=== PATIENT | male | born 1990 | race Caucasian/White ===

== ENCOUNTER 2016-10-04 11:52 | Emergency (ER) | payer SELFPAY ==
[~2016-10-04] VITALS: Ht 185.4 cm; Wt 68.0 kg
[~2016-10-04 11:52] MED LIST: AMOX875T PO; AZIT250T PO; CLIN300C8 PO; DOXY100C2 PO; HYDR-971 PO; INSU100I17 SQ; INSU100I27 SQ; LIDO20SO PO; MUPI22OI2 TP; NYST100054 PO; OMEP40CA5 PO; ONDA4TAB10 SL; PRED50TA PO; VENTOLIN HFA18 GM INH
[2016-10-04 12:03] VITALS: BP 116/78
[2016-10-04] MEDS ORDERED: MUPI22OI2 TP (12:24)
--- NOTE | 2016-10-04 12:24 | PHYS DOC ---
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 They come and go and are associated with redness. Onset weeks. Location skin. Duration constant. The wounds are alleviated by topical ointment that was given to him last time in the emergency room. Review of systems is negative for chest pain shortness of breath nausea vomiting fevers chills. He denies any other complaints. All other review of systems is negative unless otherwise noted in history of present illness. ED course: 18-year-old gentleman wanting a prescription for his wounds from methamphetamine use. He was given topical mupirocin cream to follow-up with his primary care physician for further evaluation workup and care in 4-5 days. Review of Systems Review of Systems SEE ABOVE. Allergies Allergies Allergies Coded Allergies Type Severity Reaction Last Updated Verified haloperidol Allergy Intermediate "I felt like I was blowing up on the inside" 01/23/16 Yes I S O L A T I O N *CONTACT* Allergy Unknown 01/23/16 Yes No Known Medication Allergies Allergy Unknown 06/08/14 Yes Physical Exam Physical Exam Constitutional: Well developed, well nourished, no acute distress, non-toxic appearance. [] HENT: Normocephalic, atraumatic, bilateral external ears normal, oropharynx moist, no oral exudates, nose normal. [] Eyes: PERRLA, EOMI, conjunctiva normal, no discharge. Neck: Normal range of motion, no tenderness, supple, no stridor. [] Cardiovascular:Heart rate regular rhythm, no murmur Lungs & Thorax: Bilateral breath sounds clear to auscultation [] Abdomen: Bowel sounds normal, soft, no tenderness, no masses, no pulsatile masses. [] Skin: Warm, dry, no erythema. small healing wounds over body from meth use. Back: No tenderness, no CVA tenderness. [] Extremities: No tenderness, no cyanosis, no clubbing, ROM intact, no edema. [] Neurologic: Alert and oriented X 3, normal motor function, normal sensory function, no focal deficits noted. [] Psychologic: Affect normal, judgement normal, mood normal. [] Current Patient Data Vital Signs Vital Signs Date Time Temp Pulse Resp B/P (MAP) Pulse Ox O2 Delivery O2 Flow Rate FiO2 10/04/16 12:03 97.9 88 18 100 Room Air 97.9 EKG EKG [] Radiology/Procedures Radiology/Procedures [] Course & Med Decision Making Course & Med Decision Making Pertinent Labs and Imaging studies reviewed. (See chart for details) [] Dragon Disclaimer Dragon Disclaimer This electronic medical record was generated, in whole or in part, using a voice recognition dictation system. Departure Departure Impression: Primary Impression: Staph skin infection Disposition: HOME, SELF-CARE Condition: STABLE Referrals: NO PCP (PCP) ELLE MI MD Patient Instructions: Mupirocin skin cream or ointment Scripts Mupirocin (MUPIROCIN OINTMENT) 22 Gm Oint...g. 1 DAVID TP TID for WOUND CARE, #1 TUBE Prov: ANDREA SANCHEZ MD 10/04/16 ANDREA SANCHEZ MD Oct 04, 2016 12:24
== END 2016-10-04 12:30 | disposition home or self-care (01) ==
LOC: ER 11:52
DX: L08.89 Other specified local infections of the skin and subcutaneous tissue (principal); F15.10 Other stimulant abuse, uncomplicated; B95.8 Unspecified staphylococcus as the cause of diseases classified elsewhere; K21.9 Gastro-esophageal reflux disease without esophagitis; E11.9 Type 2 diabetes mellitus without complications; F12.10 Cannabis abuse, uncomplicated; Z88.8 Allergy status to other drugs, medicaments and biological substances; Z91.041 Radiographic dye allergy status
CPT/HCPCS: 99283

== ENCOUNTER 2016-10-14 13:50 | Emergency (ER) | payer SELFPAY ==
[~2016-10-14] VITALS: Ht 185.4 cm; Wt 68.0 kg
[2016-10-14 14:08] VITALS: BP 128/99
--- NOTE | 2016-10-14 14:52 | PHYS DOC ---
Past Medical History Past Medical History: Diabetes-Type II, GERD Additional Past Medical Histor: stap Past Surgical History: No Surgical History Alcohol Use: Occasionally Drug Use: Marijuana, Methamphetamine Adult General Chief Complaint Chief Complaint: TOOTH ACHE OR PAIN [facility] Patient is a 26 year old male presents to the emergency department stating he is having left molar upper dental pain that started at 12:00 this afternoon. He states that he had taken some ibuprofen for the pain and discomfort which hasn' t helped yet he is also stated that he has rinsed his mouth out with hydrogen peroxide multiple times as well. He denies any fever, chills or any nausea vomiting. He denies any foul taste in his mouth. Review of Systems Review of Systems Constitutional: Denies fever or chills [] Eyes: Denies change in visual acuity, redness, or eye pain [] HENT: Denies nasal congestion or sore throat. Complaint of left upper back molar pain and discomfort Respiratory: Denies cough or shortness of breath [] Cardiovascular: No additional information not addressed in HPI [] GI: Denies abdominal pain, nausea, vomiting, bloody stools or diarrhea [] : Denies dysuria or hematuria [] Musculoskeletal: Denies back pain or joint pain [] Integument: Denies rash or skin lesions [] Neurologic: Denies headache, focal weakness or sensory changes [] Endocrine: Denies polyuria or polydipsia [] Allergies Allergies Allergies Coded Allergies Type Severity Reaction Last Updated Verified haloperidol Allergy Intermediate "I felt like I was blowing up on the inside" 01/23/16 Yes I S O L A T I O N *CONTACT* Allergy Unknown 01/23/16 Yes No Known Medication Allergies Allergy Unknown 06/08/14 Yes Physical Exam Physical Exam Constitutional: Well developed, well nourished, no acute distress, non-toxic appearance. [] HENT: Normocephalic, atraumatic, bilateral external ears normal, oropharynx moist, no oral exudates, nose normal. Bilateral tympanic membranes appear to be normal. Throat with no erythematous. Patient appears to have a cavity has slightly dislodged. Patient also appears to have some dislodgment of teeth along the left upper molar. No abscess noted. Eyes: PERRLA, EOMI, conjunctiva normal, no discharge. [] Neck: Normal range of motion, no tenderness, supple, no stridor. [] Cardiovascular:Heart rate regular rhythm, no murmur [] Lungs & Thorax: Bilateral breath sounds clear to auscultation [] Skin: Warm, dry, no erythema, no rash. [] Back: No tenderness Extremities: No tenderness, no cyanosis, no clubbing, ROM intact, no edema. [] Neurologic: Alert and oriented X 3, normal motor function, normal sensory function, no focal deficits noted. [] Psychologic: Affect normal, judgement normal, mood normal. [] Current Patient Data Vital Signs Vital Signs Date Time Temp Pulse Resp B/P (MAP) Pulse Ox O2 Delivery O2 Flow Rate FiO2 10/14/16 14:08 98.1 58 20 98 Room Air 98.1 EKG EKG [] Radiology/Procedures Radiology/Procedures [] Course & Med Decision Making Course & Med Decision Making Pertinent Labs and Imaging studies reviewed. (See chart for details) Instructed patient to use dental wax [id number] to help cover the area until he can get into the dentist. Recommended ibuprofen for pain and discomfort. Warm salt water mouth rinses 4-5 times a day. Patient agreed with discharge instructions upon providing him the continuation of instructions to follow up with a dentist patient's asked if he was going to get a prescription for pain medication. Explained to patient that once the areas covered with the dental wax but this should help with the pain and discomfort. Patient will be discharged home in stable condition signs and symptoms to return back to emergency department has been provided. [] Dragon Disclaimer Dragon Disclaimer This electronic medical record was generated, in whole or in part, using a voice recognition dictation system. Departure Departure Impression: Primary Impression: Pain, dental Disposition: 01 HOME, SELF-CARE Condition: STABLE Referrals: NO PCP (PCP) Patient Instructions: Dental Pain, [id number] Additional Instructions: Activity as tolerated. Follow-up with the dentist within the next week. You may obtain dental wax [id number] to place over the area of the tooth that is having pain. Ibuprofen 800 mg every 8 hours this medication may cause upset stomachs make sure you eat when taking it. Return back to emergency prior signs and symptoms of become worse. ZUHAIR [employer]ES [employer] TENDER Oct 14, 2016 14:52
== END 2016-10-14 14:52 | disposition home or self-care (01) ==
LOC: ER 13:50
DX: K08.89 Other specified disorders of teeth and supporting structures (principal); E11.9 Type 2 diabetes mellitus without complications; K21.9 Gastro-esophageal reflux disease without esophagitis; F12.10 Cannabis abuse, uncomplicated; F15.10 Other stimulant abuse, uncomplicated; Z91.041 Radiographic dye allergy status; Z88.8 Allergy status to other drugs, medicaments and biological substances
CPT/HCPCS: 99281

== ENCOUNTER 2017-05-16 05:37 | Emergency (ER) | payer SELFPAY ==
[2017-05-16 06:36] LABS: POC GLUCOSE 165 mg/dL (70-99)
[2017-05-16] MEDS: MULTIVIT INFUSN,ADULT 4,VIT K 10 ML, THIAMINE 100 MG, FOLIC ACID 1 MG in IV NORMAL SALI... IV ×2 (06:44)
[2017-05-16 06:49] LABS: ADD MAN DIFF? NO
[2017-05-16 07:05] LABS: ANION GAP 7 (6-14); BLOOD UREA NITROGEN 18 mg/dL (8-26); CALCIUM 8.7 mg/dL (8.5-10.1); CARBON DIOXIDE 30 mmol/L (21-32); CHLORIDE 100 mmol/L (98-107); CREATININE 0.7 mg/dL (0.7-1.3); GFR 133.3; GLUCOSE 173 mg/dL (70-99); POTASSIUM 3.9 mmol/L (3.5-5.1); SODIUM 137 mmol/L (136-145)
[2017-05-16 07:06] LABS: BASO # 0.1 x10^3/uL (0.0-0.2); BASO % 1 % (0-3); EOS % 1 % (0-3); HEMATOCRIT 42.9 % (39.0-53.0); HEMOGLOBIN 14.4 g/dL (13.0-17.5); LYMPH # 1.4 x10^3/uL (1.0-4.8); LYMPH % 24 % (24-48); MEAN CORPUSCULAR HEMOGLOBIN 29 pg (25-35); MEAN CORPUSCULAR HGB CONC 34 g/dL (31-37); MEAN CORPUSCULAR VOLUME 87 fL (79-100); MONO # 0.4 x10^3/uL (0.0-1.1); MONO % 7 % (0-9); NEUT % 67 % (31-73); PLATELET COUNT 217 x10^3/uL (140-400); RED BLOOD COUNT 4.91 x10^6/uL (4.30-5.70); RED CELL DISTRIBUTION WIDTH 12.9 % (11.5-14.5)
[2017-05-16 07:13] LABS: ALBUMIN 3.6 g/dL (3.4-5.0); ALK PHOS 81 U/L (46-116); ALT (SGPT) 24 U/L (16-63); AST (SGOT) 10 U/L (15-37); DIRECT BILIRUBIN 0.1 mg/dL (0.0-0.2); MAGNESIUM 1.7 mg/dL (1.8-2.4); TOTAL BILIRUBIN 0.2 mg/dL (0.2-1.0); TOTAL PROTEIN 6.8 g/dL (6.4-8.2)
[2017-05-16 07:15] LABS: INR 1.2 (0.8-1.1); PARTIAL THROMBOPLASTIN TIME 28 SEC (24-38); PROTHROMBIN TIME PATIENT 14.1 SEC (11.7-14.0)
[2017-05-16 08:17] LABS: AMPHETAMINE/METHAMPHETAMINE POS (NEG); BARBITURATES NEG (NEG); BENZODIAZEPINES NEG (NEG); CANNABINOIDS POS (NEG); COCAINE NEG (NEG); ETHANOL, URINE NEG (NEG); METHADONE NEG (NEG); OPIATES NEG (NEG); PHENCYCLIDINE NEG (NEG)
[2017-05-16 08:39] LABS: POC GLUCOSE 194 mg/dL (70-99)
[2017-05-16] MEDS: INSULIN DETEMIR 300 UNITS/3 ML INSULN.PEN. SQ ×2 (09:11)
[2017-05-16] MEDS: INSULIN ASPART 300 UNITS/3 ML INSULN.PEN SQ ×2 (09:12)
== END 2017-05-16 09:54 | disposition home or self-care (01) ==
LOC: ER 05:37
DX: F11.23 Opioid dependence with withdrawal (principal); F41.9 Anxiety disorder, unspecified; F15.10 Other stimulant abuse, uncomplicated; K21.9 Gastro-esophageal reflux disease without esophagitis; E10.9 Type 1 diabetes mellitus without complications; F12.10 Cannabis abuse, uncomplicated; Z88.8 Allergy status to other drugs, medicaments and biological substances; Z79.4 Long term (current) use of insulin; Z91.041 Radiographic dye allergy status
CPT/HCPCS: 36415; 80048; 80076; 80307; 82962; 83735; 85025; 85610; 85730; 96365; 96372; 96375; 99284-25; J1815; J2060; J7030

== ENCOUNTER 2017-12-06 05:47 | Emergency (ER) | payer SELFPAY ==
[~2017-12-06] VITALS: Ht 185.4 cm; Wt 68.0 kg
[~2017-12-06 05:47] MED LIST changes: +TRAZ-86 PO
--- NOTE | 2017-12-06 06:13 | PHYS DOC ---
Past Medical History Past Medical History: Anxiety, Diabetes-Type I, GERD Additional Past Medical Histor: staph Past Surgical History: No Surgical History Smoking: Cigarettes Alcohol Use: Occasionally Drug Use: Marijuana, Methamphetamine Adult General Chief Complaint Chief Complaint: SUICDAL IDEATION HPI HPI Patient presents to the emergency department for evaluation. He states he has not slept for 4 days. He states every time he tries to lay down his mind begins racing. He states he has also been having some suicidal thoughts but is uncertain why he is feeling suicidal. He states he gets stressed and the thoughts of suicide come to his head but he does not have any active suicidal desire at this time and does not have a plan. The patient is very emotional and tearful. He states his father about 2 weeks ago but does not think that this is what is keeping him awake. He does admit to using amphetamines, but states he has not used in a week, and he did sleep after he last used. He states he has never had suicidal thoughts before or been hospitalized for mental health reasons, although he has had outpatient counseling for substance abuse. He is an insulin-dependent diabetic but denies any other medical problems and reports compliance with his medications. He denies any physical pain, although he states he has some discomfort in his chest when he lays down to go to sleep, relating to his anxiety. There are no alleviating, or exacerbating factors to his symptoms. Patient did have somewhat of a similar presentation to this emergency department in May of this past year. Notes from that ER visit have been reviewed. Review of Systems Review of Systems Constitutional: Denies fever or chills [] Eyes: Denies change in visual acuity, redness, or eye pain [] HENT: Denies nasal congestion or sore throat [] Respiratory: Denies cough or shortness of breath [] Cardiovascular: The patient denies any shortness of breath, current chest pain, palpitations, or orthopnea [] GI: Denies abdominal pain, nausea, vomiting, bloody stools or diarrhea [] : Denies dysuria or hematuria [] Musculoskeletal: Denies back pain or joint pain [] Integument: Denies rash or skin lesions [] Neurologic: Denies headache, focal weakness or sensory changes [] Endocrine: Denies polyuria or polydipsia [] Psychiatric: Patient reports anxiety, and insomnia. Denies any visual hallucinations, or command/auditory hallucinations. All other systems were reviewed and found to be within normal limits, except as documented in this note. Current Medications Current Medications Current Medications Medications (Trade) Dose Ordered Sig/Bryce Start Time Stop Time Status Last Admin Dose Admin Lorazepam (Ativan) 1 mg 1X ONCE 12/06/17 06:15 12/06/17 06:16 DC 12/06/17 06:19 1 MG Allergies Allergies Allergies Coded Allergies Type Severity Reaction Last Updated Verified I S O L A T I O N *CONTACT* Allergy Unknown 01/23/16 Yes haloperidol Adverse Reaction Intermediate "I felt like I was blowing up on the inside" 05/16/17 Yes Physical Exam Physical Exam PHYSICAL EXAM: CONSTITUTIONAL: Well developed, well nourished HEAD: normocephalic, atraumatic EENT: PERRL, EOMI. Conjunctivae normal color, sclerae non-icteric; moist mucous membranes. NECK: Supple, non-tender; no meningismus. LUNGS: Lungs CTA, breathing even and unlabored. Normal air movement. HEART: Regular rate and rhythm, no murmur CHEST: No deformity; non-tender ABDOMEN: The abdomen is soft, and non-tender, no masses or bruits. EXTREM: Normal ROM; no deformity, no calf tenderness. Normal pulses palpable in all extremities. There is no pedal edema. SKIN: No rash; no diaphoresis. There are numerous small, scabbed lesions on the extremities. NEURO: Alert; normal speech and cognition; CN's grossly intact; strength grossly intact without focal deficit. BACK: No CVA TTP. PSYCHIATRIC: The patient appears extremely anxious, with a labile affect, cries very easily. Current Patient Data Vital Signs Vital Signs Date Time Temp Pulse Resp B/P (MAP) Pulse Ox O2 Delivery O2 Flow Rate FiO2 12/06/17 06:53 90 16 109/71 (84) 98 Room Air 12/06/17 05:50 97.9 97.9 Lab Values Laboratory Tests Test 12/06/17 05:55 12/06/17 06:04 Urine Collection Type Unknown Urine Color Yellow Urine Clarity Clear Urine pH 6.0 Urine Specific [place] 1.015 Urine Protein Negative mg/dL (NEG-TRACE) Urine Glucose (UA) Negative mg/dL (NEG) Urine Ketones (Stick) Negative mg/dL (NEG) Urine Blood Negative (NEG) Urine Nitrite Negative (NEG) Urine Bilirubin Negative (NEG) Urine Urobilinogen Dipstick 1.0 mg/dL (0.2 mg/dL) Urine Leukocyte Esterase Negative (NEG) Urine RBC 6-10 /HPF (0-2) Urine WBC 1-4 /HPF (0-4) Urine Squamous Epithelial Cells Few /LPF Urine Bacteria 0 /HPF (0-FEW) Urine Opiates Screen Neg (NEG) Urine Methadone Screen Neg (NEG) Urine Barbiturates Neg (NEG) Urine Phencyclidine Screen Neg (NEG) Urine Amphetamine/Methamphetamine Neg (NEG) Urine Benzodiazepines Screen Neg (NEG) Urine Cocaine Screen Neg (NEG) Urine Cannabinoids Screen Pos (NEG) Urine Ethyl Alcohol Neg (NEG) White Blood Count 6.6 x10^3/uL (4.0-11.0) Red Blood Count 5.17 x10^6/uL (4.30-5.70) Hemoglobin 15.4 g/dL (13.0-17.5) Hematocrit 45.2 % (39.0-53.0) Mean Corpuscular Volume 87 fL (79-100) Mean Corpuscular Hemoglobin 30 pg (25-35) Mean Corpuscular Hemoglobin Concent 34 g/dL (31-37) Red Cell Distribution Width 12.7 % (11.5-14.5) Platelet Count 186 x10^3/uL (140-400) Neutrophils (%) (Auto) 58 % (31-73) Lymphocytes (%) (Auto) 30 % (24-48) Monocytes (%) (Auto) 8 % (0-9) Eosinophils (%) (Auto) 3 % (0-3) Basophils (%) (Auto) 1 % (0-3) Neutrophils # (Auto) 3.8 x10^3uL (1.8-7.7) Lymphocytes # (Auto) 2.0 x10^3/uL (1.0-4.8) Monocytes # (Auto) 0.5 x10^3/uL (0.0-1.1) Eosinophils # (Auto) 0.2 x10^3/uL (0.0-0.7) Basophils # (Auto) 0.1 x10^3/uL (0.0-0.2) Sodium Level 133 mmol/L (136-145) L Potassium Level 3.7 mmol/L (3.5-5.1) Chloride Level 102 mmol/L (98-107) Carbon Dioxide Level 30 mmol/L (21-32) Anion Gap 1 (6-14) L Blood Urea Nitrogen 18 mg/dL (8-26) Creatinine 0.8 mg/dL (0.7-1.3) Estimated GFR (Cockcroft-Gault) 114.3 Glucose Level 85 mg/dL (70-99) Calcium Level 9.2 mg/dL (8.5-10.1) Magnesium Level 1.8 mg/dL (1.8-2.4) Total Bilirubin 0.3 mg/dL (0.2-1.0) Direct Bilirubin 0.1 mg/dL (0.0-0.2) Aspartate Amino Transferase (AST) 10 U/L (15-37) L Alanine Aminotransferase (ALT) 22 U/L (16-63) Alkaline Phosphatase 85 U/L (46-116) Total Protein 6.8 g/dL (6.4-8.2) Albumin 3.6 g/dL (3.4-5.0) Thyroid Stimulating Hormone (TSH) 1.051 uIU/mL (0.358-3.74) Free Thyroxine 0.94 ng/dL (0.76-1.46) Salicylates Level 4.1 mg/dL (2.8-20.0) Salicylate Last Dose Date Unknown Salicylate Last Dose Time Unknown Acetaminophen Level < 2.0 mcg/ml (10-30) L Acetaminophen Last Dose Date Unknown Acetaminophen Last Dose Time Unknown Ethyl Alcohol Level < 10 mg/dL (0-10) Laboratory Tests 12/06/17 06:04 Laboratory Tests 12/06/17 06:04 EKG EKG [Normal sinus rhythm a rate of 81 bpm, normal axis, normal intervals, early repolarization pattern without acute ischemic ST/T changes.] Radiology/Procedures Radiology/Procedures [] Course & Med Decision Making Course & Med Decision Making Pertinent Labs and Imaging studies reviewed. (See chart for details) [8:00 AM: The patient has been seen and evaluated by PAT team. He is feeling significantly better after administration of Ativan. His anxiety is controlled, his affect is normal at this time. He denies active suicidal ideation at this time. He states that when he gets stressed the thought of suicide comes into his head at times that he would never actually kill himself. Both myself and PAT director data management do not believe that the patient warrants hospitalization at this time. The patient has been given outpatient resources by PAT counselor, and expresses his desire to follow up today for outpatient treatment. Return precautions were discussed in detail.] Dragon Disclaimer Dragon Disclaimer This electronic medical record was generated, in whole or in part, using a voice recognition dictation system. Departure Departure Impression: Primary Impression: Anxiety Additional Impression: Depression Disposition: 01 HOME, SELF-CARE Condition: IMPROVED Patient Instructions: Anxiety and Panic Attacks, Depression, Adult, Hematuria, Adult, Substance Abuse-Brief Additional Instructions: Use the provided resources to establish care with a primary care provider for further evaluation. Testing today did demonstrate a small amount of blood in your urine. The significance of this is unknown but further outpatient evaluation, initially with a recheck of your urine specimen, is warranted. Please contact her primary care provider for further outpatient evaluation. Problem Qualifiers YOKASTA BRAY MD Dec 06, 2017 06:12
--- NOTE | 2017-12-06 06:30 | EKG ---
[facility] [address] [place] [address] Test Date: 2017-12-06 Test Time: 06:15:52 Pat Name: JASON CORTÉS Department: Room: Gender: M Pensionholder Information Clerk: [id number] : 1990 Requested By: YOKASTA BRAY Order Number: [id number] Reading MD: Sean Nathan MD Measurements Intervals [place] Rate: 81 P: 59 WI: 132 QRS: 86 QRSD: 90 T: 57 QT: 342 QTc: 402 Interpretive Statements SINUS RHYTHM Electronically Signed On 12-06-2017 11:00:13 CDT by Sean Nathan MD
[2017-12-06 06:31] LABS: CALCIUM 9.2 mg/dL (8.5-10.1); CREATININE 0.8 mg/dL (0.7-1.3); GFR 114.3; POTASSIUM 3.7 mmol/L (3.5-5.1)
[2017-12-06 06:32] LABS: BASO # 0.1 x10^3/uL (0.0-0.2); BASO % 1 % (0-3); EOS # 0.2 x10^3/uL (0.0-0.7); EOS % 3 % (0-3); HEMATOCRIT 45.2 % (39.0-53.0); HEMOGLOBIN 15.4 g/dL (13.0-17.5); LYMPH % 30 % (24-48); MEAN CORPUSCULAR HEMOGLOBIN 30 pg (25-35); MEAN CORPUSCULAR HGB CONC 34 g/dL (31-37); MEAN CORPUSCULAR VOLUME 87 fL (79-100); MONO # 0.5 x10^3/uL (0.0-1.1); MONO % 8 % (0-9); NEUT # 3.8 x10^3uL (1.8-7.7); NEUT % 58 % (31-73); PLATELET COUNT 186 x10^3/uL (140-400); RED BLOOD COUNT 5.17 x10^6/uL (4.30-5.70); RED CELL DISTRIBUTION WIDTH 12.7 % (11.5-14.5); WHITE BLOOD COUNT 6.6 x10^3/uL (4.0-11.0)
[2017-12-06 06:33] LABS: BARBITURATES NEG (NEG); BENZODIAZEPINES NEG (NEG); CANNABINOIDS POS (NEG); COCAINE NEG (NEG); METHADONE NEG (NEG); OPIATES NEG (NEG); PHENCYCLIDINE NEG (NEG)
[2017-12-06 06:34] LABS: ACETAMIN < 2.0 mcg/ml (10-30); SALIC 4.1 mg/dL (2.8-20.0)
[2017-12-06 06:35] LABS: ETHANOL < 10 mg/dL (0-10)
[2017-12-06 06:35] LABS: AMPHETAMINE/METHAMPHETAMINE NEG (NEG)
[2017-12-06 06:37] LABS: ALBUMIN 3.6 g/dL (3.4-5.0); DIRECT BILIRUBIN 0.1 mg/dL (0.0-0.2); MAGNESIUM 1.8 mg/dL (1.8-2.4); TOTAL BILIRUBIN 0.3 mg/dL (0.2-1.0); TOTAL PROTEIN 6.8 g/dL (6.4-8.2)
[2017-12-06 06:42] LABS: BILIRUBIN,URINE NEGATIVE (NEG); CLARITY,URINE CLEAR; COLOR,URINE YELLOW; NITRITE,URINE NEGATIVE (NEG); PROTEIN,URINE NEGATIVE (NEG-TRACE)
[2017-12-06 06:42] LABS: FREE T4 0.94 ng/dL (0.76-1.46); THYROID STIM HORMONE (TSH) 1.051 uIU/mL (0.358-3.74)
[2017-12-06 06:49] LABS: BACTERIA,URINE 0 /HPF (0-FEW); SQUAMOUS EPITHELIAL CELL,UR FEW /LPF
[2017-12-06 07:53] VITALS: BP 112/76
== END 2017-12-06 08:18 | disposition home or self-care (01) ==
LOC: ER 05:47
DX: F41.9 Anxiety disorder, unspecified (principal); F32.9 Major depressive disorder, single episode, unspecified; R45.851 Suicidal ideations; K21.9 Gastro-esophageal reflux disease without esophagitis; F17.210 Nicotine dependence, cigarettes, uncomplicated; E10.9 Type 1 diabetes mellitus without complications; Z91.041 Radiographic dye allergy status; Z88.8 Allergy status to other drugs, medicaments and biological substances
CPT/HCPCS: 36415; 80048; 80076; 80307; 80329; 81001; 83735; 84439; 84443; 85025; 93005; 96374; 99285; G0480; G6039; J2060; G0479

== ENCOUNTER 2017-12-22 10:21 | Emergency (ER) | payer SELFPAY ==
[~2017-12-22] VITALS: Ht 185.4 cm; Wt 68.0 kg
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
[2017-12-22] MEDS: NAPROXEN 500 MG TABLET PO STA (12:36)
[2017-12-22] MEDS: LIDOCAINE 1% PF 2 ML VIAL. INJ ONE (12:45)
[2017-12-22 13:30] VITALS: BP 126/85
[2017-12-22] MEDS ORDERED: CEPH500C PO (13:47)
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
[2017-12-22] MEDS: NEOMY/BACITR/POLYMYXIN OINT PACKET. TP ONE (13:52)
== END 2017-12-22 13:55 | disposition home or self-care (01) ==
LOC: ER 10:21
DX: S06.9X9A Unspecified intracranial injury with loss of consciousness of unspecified duration, initial encounter (principal); S71.111A Laceration without foreign body, right thigh, initial encounter; E10.9 Type 1 diabetes mellitus without complications; F15.10 Other stimulant abuse, uncomplicated; F17.200 Nicotine dependence, unspecified, uncomplicated; Z88.8 Allergy status to other drugs, medicaments and biological substances; Z91.041 Radiographic dye allergy status; X99.1XXA Assault by knife, initial encounter; Y93.89 Activity, other specified; Y92.009 Unspecified place in unspecified non-institutional (private) residence as the place of occurrence of the external cause; Y99.8 Other external cause status
CPT/HCPCS: 12001; 70450; 70486; 73552; 82962; 99284; 99285-25

== ENCOUNTER 2017-12-24 18:13 | Emergency (ER) | payer SELFPAY ==
[~2017-12-24] VITALS: Ht 185.4 cm; Wt 68.0 kg
[~2017-12-24 18:13] MED LIST changes: +CEPH500C PO
[2017-12-24 22:13] VITALS: BP 129/88
[2017-12-24] MEDS ORDERED: IV NORMAL SALINE 1000ML BAG 1,000 ML IV ONE (22:30)
[2017-12-24 22:45] LABS: BASO # 0.1 x10^3/uL (0.0-0.2); BASO % 1 % (0-3); EOS # 0.2 x10^3/uL (0.0-0.7); EOS % 3 % (0-3); HEMATOCRIT 36.1 % (39.0-53.0); LYMPH # 2.6 x10^3/uL (1.0-4.8); LYMPH % 33 % (24-48); MEAN CORPUSCULAR HEMOGLOBIN 31 pg (25-35); MEAN CORPUSCULAR HGB CONC 36 g/dL (31-37); MEAN CORPUSCULAR VOLUME 86 fL (79-100); MONO # 0.6 x10^3/uL (0.0-1.1); MONO % 8 % (0-9); NEUT # 4.5 x10^3uL (1.8-7.7); NEUT % 56 % (31-73); PLATELET COUNT 198 x10^3/uL (140-400); RED BLOOD COUNT 4.18 x10^6/uL (4.30-5.70); RED CELL DISTRIBUTION WIDTH 12.7 % (11.5-14.5); WHITE BLOOD COUNT 8.1 x10^3/uL (4.0-11.0)
[2017-12-24 22:55] LABS: ANION GAP 6 (6-14); BLOOD UREA NITROGEN 13 mg/dL (8-26); BUN/CREATININE RATIO 22 (6-20); CALCIUM 9.1 mg/dL (8.5-10.1); CARBON DIOXIDE 31 mmol/L (21-32); CHLORIDE 104 mmol/L (98-107); CREATININE 0.6 mg/dL (0.7-1.3); GFR 159.3; GLUCOSE 76 mg/dL (70-99); SODIUM 141 mmol/L (136-145)
[2017-12-24 23:02] LABS: ALBUMIN 3.3 g/dL (3.4-5.0); ALK PHOS 113 U/L (46-116); ALT (SGPT) 20 U/L (16-63); AST (SGOT) 8 U/L (15-37); LIPASE 99 U/L (73-393); MAGNESIUM 1.7 mg/dL (1.8-2.4); TOTAL BILIRUBIN 0.3 mg/dL (0.2-1.0); TOTAL PROTEIN 6.6 g/dL (6.4-8.2)
[2017-12-24 23:06] LABS: ACETONE NEG (NEG)
--- NOTE | 2017-12-24 23:34 | PHYS DOC ---
Past Medical History Past Medical History: Diabetes-Type II Additional Past Medical Histor: [facility] Past Surgical History: No Surgical History Alcohol Use: Occasionally Drug Use: Methadone Adult General Chief Complaint Chief Complaint: HYPERGLYCEMIA HPI HPI Patient is a 27 year old [f__sex] who presents with [] Review of Systems Review of Systems Constitutional: Denies fever or chills [] Eyes: Denies change in visual acuity, redness, or eye pain [] HENT: Denies nasal congestion or sore throat [] Respiratory: Denies cough or shortness of breath [] Cardiovascular: No additional information not addressed in HPI [] GI: Denies abdominal pain, nausea, vomiting, bloody stools or diarrhea [] : Denies dysuria or hematuria [] Musculoskeletal: Denies back pain or joint pain [] Integument: Denies rash or skin lesions [] Neurologic: Denies headache, focal weakness or sensory changes [] Endocrine: Denies polyuria or polydipsia [] All other systems were reviewed and found to be within normal limits, except as documented in this note. Current Medications Current Medications Current Medications Medications (Trade) Dose Ordered Sig/Bryce Start Time Stop Time Status Last Admin Dose Admin Sodium Chloride 1,000 ml @ 1,000 mls/hr 1X ONCE 12/24/17 22:30 12/24/17 23:29 DC 12/24/17 22:30 1,000 MLS/HR Allergies Allergies Allergies Coded Allergies Type Severity Reaction Last Updated Verified I S O L A T I O N *CONTACT* Allergy Unknown 01/23/16 Yes haloperidol Adverse Reaction Intermediate "I felt like I was blowing up on the inside" 05/16/17 Yes Physical Exam Physical Exam Constitutional: Well developed, well nourished, no acute distress, non-toxic appearance. [] HENT: Normocephalic, atraumatic, bilateral external ears normal, oropharynx moist, no oral exudates, nose normal. [] Eyes: PERRLA, EOMI, conjunctiva normal, no discharge. [] Neck: Normal range of motion, no tenderness, supple, no stridor. [] Cardiovascular:Heart rate regular rhythm, no murmur [] Lungs & Thorax: Bilateral breath sounds clear to auscultation [] Abdomen: Bowel sounds normal, soft, no tenderness, no masses, no pulsatile masses. [] Skin: Warm, dry, no erythema, no rash. [] Back: No tenderness, no CVA tenderness. [] Extremities: No tenderness, no cyanosis, no clubbing, ROM intact, no edema. [] Neurologic: Alert and oriented X 3, normal motor function, normal sensory function, no focal deficits noted. [] Psychologic: Affect normal, judgement normal, mood normal. [] Current Patient Data Vital Signs Vital Signs Date Time Temp Pulse Resp B/P (MAP) Pulse Ox O2 Delivery O2 Flow Rate FiO2 12/24/17 22:13 90 16 129/88 (102) 100 Room Air 12/24/17 19:27 97.9 97.9 Lab Values Laboratory Tests Test 12/24/17 20:10 12/24/17 22:40 Glucose (Fingerstick) 207 mg/dL (70-99) H White Blood Count 8.1 x10^3/uL (4.0-11.0) Red Blood Count 4.18 x10^6/uL (4.30-5.70) L Hemoglobin 13.0 g/dL (13.0-17.5) Hematocrit 36.1 % (39.0-53.0) L Mean Corpuscular Volume 86 fL (79-100) Mean Corpuscular Hemoglobin 31 pg (25-35) Mean Corpuscular Hemoglobin Concent 36 g/dL (31-37) Red Cell Distribution Width 12.7 % (11.5-14.5) Platelet Count 198 x10^3/uL (140-400) Neutrophils (%) (Auto) 56 % (31-73) Lymphocytes (%) (Auto) 33 % (24-48) Monocytes (%) (Auto) 8 % (0-9) Eosinophils (%) (Auto) 3 % (0-3) Basophils (%) (Auto) 1 % (0-3) Neutrophils # (Auto) 4.5 x10^3uL (1.8-7.7) Lymphocytes # (Auto) 2.6 x10^3/uL (1.0-4.8) Monocytes # (Auto) 0.6 x10^3/uL (0.0-1.1) Eosinophils # (Auto) 0.2 x10^3/uL (0.0-0.7) Basophils # (Auto) 0.1 x10^3/uL (0.0-0.2) Sodium Level 141 mmol/L (136-145) Potassium Level 4.0 mmol/L (3.5-5.1) Chloride Level 104 mmol/L (98-107) Carbon Dioxide Level 31 mmol/L (21-32) Anion Gap 6 (6-14) Blood Urea Nitrogen 13 mg/dL (8-26) Creatinine 0.6 mg/dL (0.7-1.3) L Estimated GFR (Cockcroft-Gault) 159.3 BUN/Creatinine Ratio 22 (6-20) H Glucose Level 76 mg/dL (70-99) Serum Osmolality 287 mOsm/Kg (279-304) Calcium Level 9.1 mg/dL (8.5-10.1) Magnesium Level 1.7 mg/dL (1.8-2.4) L Total Bilirubin 0.3 mg/dL (0.2-1.0) Aspartate Amino Transferase (AST) 8 U/L (15-37) L Alanine Aminotransferase (ALT) 20 U/L (16-63) Alkaline Phosphatase 113 U/L (46-116) Total Protein 6.6 g/dL (6.4-8.2) Albumin 3.3 g/dL (3.4-5.0) L Albumin/Globulin Ratio 1.0 (1.0-1.7) Lipase 99 U/L (73-393) Acetone Level Neg (NEG) Laboratory Tests 12/24/17 22:40 Laboratory Tests 12/24/17 22:40 EKG EKG [] Radiology/Procedures Radiology/Procedures [] Course & Med Decision Making Course & Med Decision Making Pertinent Labs and Imaging studies reviewed. (See chart for details) [] Dragon Disclaimer Dragon Disclaimer This electronic medical record was generated, in whole or in part, using a voice recognition dictation system. Departure Departure Impression: Primary Impression: History of hyperglycemia Additional Impression: Noncompliance with medication regimen Disposition: 01 HOME, SELF-CARE Condition: STABLE Referrals: NO PCP (PCP) ELLE LOMELI MD Patient Instructions: Hyperglycemia, [id number] Additional Instructions: Your blood sugar upon labs was 76. Would not recommend taking insulin at this time. You need to continue to watch your diet and then follow with clinic or PCP. Problem Qualifiers ELLE NIÑO DO Dec 24, 2017 23:34
== END 2017-12-25 02:11 | disposition home or self-care (01) ==
LOC: ER 18:13
DX: E11.65 Type 2 diabetes mellitus with hyperglycemia (principal); Z91.14 Patient's other noncompliance with medication regimen; Z88.8 Allergy status to other drugs, medicaments and biological substances; Z91.041 Radiographic dye allergy status
CPT/HCPCS: 36415; 80053; 82010; 82962; 83690; 83735; 83930; 85025; 96360; 99284; J7030

== ENCOUNTER 2018-01-10 20:16 | Emergency (ER) | payer SELFPAY ==
[2018-01-10] MEDS ORDERED: SULF1TAB24 PO (23:48)
[2018-01-10] MEDS ORDERED: MUPI22OI2 TP (23:48)
== END 2018-01-10 21:40 | disposition left against medical advice (07) ==
LOC: ER 20:16
DX: T14.8XXA Other injury of unspecified body region, initial encounter (principal); Z53.21 Procedure and treatment not carried out due to patient leaving prior to being seen by health care provider

== ENCOUNTER 2018-01-10 22:04 | Emergency (ER) | payer SELFPAY ==
[~2018-01-10] VITALS: Ht 185.4 cm; Wt 68.0 kg
[2018-01-10 23:15] VITALS: BP 121/88
[2018-01-10] MEDS ORDERED: SULF1TAB24 PO (23:48)
[2018-01-10] MEDS ORDERED: MUPI22OI2 TP (23:48)
[2018-01-11] MEDS ORDERED: SMZ/TMP 800/160MG TABLET. PO ONE (00:15)
--- NOTE | 2018-01-11 03:52 | PHYS DOC ---
Past Medical History Past Medical History: Diabetes-Type II Additional Past Medical Histor: staph Past Surgical History: No Surgical History Alcohol Use: Occasionally Drug Use: Marijuana, Methadone Social History Narrative: "QUIT METH 1 MONTH AGO" Adult General Chief Complaint Chief Complaint: INSECT BITE HPI HPI Patient is a 27 year old male with history of MRSA who presents with cellulitis with soft tissue infection over left anterior tibia. Patient states symptoms began several days ago. No fever chills, nausea vomiting or sweats. Patient is currently homeless.[] Review of Systems Review of Systems Review symptoms as per history of present illness. All other review symptoms are negative. All other systems were reviewed and found to be within normal limits, except as documented in this note. Current Medications Current Medications Current Medications Medications (Trade) Dose Ordered Sig/Bryce Start Time Stop Time Status Last Admin Dose Admin Trimethoprim/ Sulfamethoxazole (Bactrim Ds) 1 tab 1X ONCE 01/11/18 00:15 01/11/18 00:16 DC Allergies Allergies Allergies Coded Allergies Type Severity Reaction Last Updated Verified I S O L A T I O N *CONTACT* Allergy Unknown 01/11/18 Yes haloperidol Adverse Reaction Intermediate "I felt like I was blowing up on the inside" 01/11/18 Yes Physical Exam Physical Exam Constitutional: Well developed, well nourished, no acute distress, non-toxic appearance. [] HENT: Normocephalic, atraumatic, bilateral external ears normal, oropharynx moist, no oral exudates, nose normal. [] Eyes: PERRLA, EOMI, conjunctiva normal, no discharge. [] Skin: Multiple picking lesion throughout upper and lower extremities and torso. 3 x 2 cm patch of cellulitis over left anterior tib, with weeping and early soft tissue abscess[] Back: No tenderness,[] Extremities: No tenderness, no cyanosis, no clubbing, ROM intact, no edema. [] Neurologic: Alert and oriented X 3, normal motor function, normal sensory function, no focal deficits noted. [] Psychologic: Affect normal, judgement normal, mood normal. [] Current Patient Data Vital Signs Vital Signs Date Time Temp Pulse Resp B/P (MAP) Pulse Ox O2 Delivery O2 Flow Rate FiO2 01/10/18 23:15 97.3 89 14 121/88 (99) 97 Room Air 97.3 EKG EKG [] Radiology/Procedures Radiology/Procedures [] Course & Med Decision Making Course & Med Decision Making Pertinent Labs and Imaging studies reviewed. (See chart for details) [] Dragon Disclaimer Dragon Disclaimer This electronic medical record was generated, in whole or in part, using a voice recognition dictation system. Departure Departure Impression: Primary Impression: Staphylococcal infection of skin Disposition: HOME, SELF-CARE Condition: STABLE Patient Instructions: Staphylococcal Infections Additional Instructions: Please wash and chlorhexidine bath and take oral antibiotics as directed and apply topical antibiotics to lesion on the left leg. Follow-up with local primary care doctor the next 3-5 days for reevaluation. Return to the ED if new or worsening symptoms.. Scripts Sulfamethoxazole/Trimethoprim (BACTRIM DS TABLET) 1 Each Tablet 1 TAB PO BID, #20 TAB Prov: MARIFER HAILE DO 01/10/18 Mupirocin (MUPIROCIN OINTMENT) 22 Gm Oint...g. 1 DAVID TP TID for WOUND CARE, #1 TUBE Prov: MARIFER HAILE DO 01/10/18 MARIFER HAILE DO Jan 11, 2018 03:52
== END 2018-01-11 00:04 | disposition home or self-care (01) ==
LOC: ER 22:04
DX: L03.116 Cellulitis of left lower limb (principal); B95.7 Other staphylococcus as the cause of diseases classified elsewhere; E11.9 Type 2 diabetes mellitus without complications; Z59.0 Homelessness; Z88.8 Allergy status to other drugs, medicaments and biological substances; Z91.041 Radiographic dye allergy status
CPT/HCPCS: 99283